=== PATIENT | male | born 1995 | race Two or more races ===

== ENCOUNTER 2017-11-16 15:47 | Emergency (ER) | payer BC, OTHER ==
[~2017-11-16] VITALS: Ht 152.4 cm; Wt 61.1 kg
[2017-11-16 16:08] VITALS: BP 120/75
== END 2017-11-16 18:00 | disposition home or self-care (01) ==
LOC: ED 17:50
DX: F41.1 Generalized anxiety disorder (principal)
CPT/HCPCS: 99284

== ENCOUNTER 2018-06-02 01:32 | Emergency (ER) | payer SELFPAY ==
[~2018-06-02] VITALS: Ht 157.5 cm; Wt 68.0 kg
[2018-06-02 01:35] VITALS: BP 125/81
[2018-06-02] MEDS ORDERED: hydrOXyzine 50MG TABLET ONE (02:33)
== END 2018-06-02 02:53 | disposition home or self-care (01) ==
LOC: ED 02:09
DX: F32.9 Major depressive disorder, single episode, unspecified (principal); F41.9 Anxiety disorder, unspecified; Z87.891 Personal history of nicotine dependence
CPT/HCPCS: 93005; 99284; Q0177